=== PATIENT | female | born 1930 | race Asian ===

== ENCOUNTER 2016-07-19 13:44 | Inpatient (IN) | payer MEDICAID ==
[~2016-07-19] VITALS: Ht 152.4 cm; Wt 34.0 kg
[2016-07-19] VITALS (14 sets, daily range): BP systolic 102–132; BP diastolic 50–82; PULSE 68–124; RESP 24–25; TEMP 97.5–98.3; O2SAT 75–100
[~2016-07-19 13:44] MED LIST: VECURONIUM BROMIDE 10 MG/VIAL (NORCURON) ONE
[2016-07-19] MEDS ORDERED: NORMAL SALINE 5 ML DISP.SYRIN IVF SCH (14:00)
[2016-07-19] MEDS ORDERED: NACL 0.9% 1,000 ML IV ONE ×2 (14:14→16:00)
[2016-07-19] MEDS ORDERED: cefTRIAXone 1 GM IVPB PREMIX 50 ML IV ONE (14:15)
[2016-07-19] MEDS ORDERED: VECURONIUM BROMIDE 10 MG/VIAL (NORCURON) IVP ONE (14:15)
[2016-07-19 14:36] LABS: HEMATOCRIT 47.2 % (36-48); HEMOGLOBIN 15.2 g/dL (12.0-16.0); MEAN CORPUSCULAR HEMOGLOBIN 29 pg (27-31); MEAN CORPUSCULAR HGB CONC 32 % (32-36); MEAN CORPUSCULAR VOLUME 91 fL (79.0-98.0); PLATELET COUNT (AUTO) 192 K/uL (130-430); RED BLOOD CELL COUNT(AUTO) 5.21 MIL/uL (4.2-6.2); RED CELL DISTRIBUTION WIDTH 12.7 % (9.0-15.0); WHITE BLOOD COUNT (AUTO) 8.6 K/uL (4.8-10.8)
[2016-07-19 14:48] LABS: INR 1.1 (0.8-1.2); PROTHROMBIN TIME 11.9 SECS (9.5-12.5)
[2016-07-19 14:54] LABS: BAND % (MANUAL) 24 % (0-6)
[2016-07-19 14:55] LABS: BASOPHILS % (MANUAL) 0 % (0-2); EOSINOPHILS % (MANUAL) 0 % (0-7); LYMPHOCYTES % (MANUAL) 2 % (20-46); MONOCYTES % (MANUAL) 12 % (0-11)
[2016-07-19 14:58] LABS: ALANINE AMINOTRANSFERASE 211 U/L (12-78); ALBUMIN 3.6 g/dL (3.4-4.8); ANION GAP 13 (5-15); ASPARTATE AMINOTRANSFERASE 226 U/L (10-37); CALCIUM 9.4 mg/dL (8.4-11.0); CHLORIDE 93 mmol/L (98-107); CREATININE 1.04 mg/dL (0.55-1.30); GLUCOSE 154 mg/dL (70-99); POTASSIUM 3.8 mmol/L (3.5-5.1); SODIUM SERUM 131 mmol/L (136-145); TOTAL BILIRUBIN 1.1 mg/dL (0.0-1.0); TOTAL PROTEIN, SERUM 7.6 g/dL (6.4-8.3); UREA NITROGEN, BLOOD 74 mg/dL (8-21)
[2016-07-19 15:01] LABS: ABG TOTAL HEMOGLOBIN 16.8 G/dL (12.0-18.0); BLOOD GAS BASE EXCESS -5.7 mmol/L (-3.0-3.0); BLOOD GAS COHb% 1.9 % (0.5-1.5); BLOOD GAS PH 7.124 (7.350-7.450); BLOOD O2Hb% 69.2 % (94.0-97.0)
[2016-07-19 15:02] LABS: BLOOD GAS HHB 28.5 % (0.0-6.0)
[2016-07-19 15:15] LABS: BILIRUBIN,URINE NEGATIVE (NEGATIVE); BLOOD, URINE 2+ (NEGATIVE); COLOR,URINE YELLOW (YELLOW); GLUCOSE,URINE NEGATIVE (NEGATIVE); KETONES,URINE NEGATIVE (NEGATIVE); LEUKOCYTE ESTERASE ,URINE NEGATIVE (NEGATIVE); NITRITE, URINE NEGATIVE (NEGATIVE); PH,URINE 5.5 (5.0-8.0); PROTEIN URINE TRACE (NEGATIVE)
[2016-07-19 15:25] LABS: CLARITY/URINE SLIGHTLY HAZY (CLEAR)
[2016-07-19 15:26] LABS: BACTERIA,URINE FEW /HPF (None Seen); RBC,URINE 20-50 /HPF (0-3); WBC,URINE 0-3 /HPF (0-3)
[2016-07-19 15:27] LABS: FINE GRANULAR CASTS,URINE 0-10 /LPF (None Seen); HYALINE CASTS, URINE 0-10 /LPF (None Seen); MUCUS,URINE None Seen /LPF (None Seen)
[2016-07-19 15:56] LABS: BLOOD GAS PH 7.186 (7.350-7.450)
[2016-07-19 15:57] LABS: ABG TOTAL HEMOGLOBIN 15.9 G/dL (12.0-18.0); BLOOD GAS BASE EXCESS -3.2 mmol/L (-3.0-3.0); BLOOD GAS COHb% 1.5 % (0.5-1.5); BLOOD GAS HHB 0.3 % (0.0-6.0); BLOOD O2Hb% 97.5 % (94.0-97.0)
[2016-07-19] MEDS ORDERED: DILTIAZEM HCL 25 MG/5 ML VIAL IVP ONE (16:00)
[2016-07-19] MEDS ORDERED: LORazepam 2 MG/ML VIAL (FOR ER USE) IVP ONE (16:15)
[2016-07-19] MEDS ORDERED: LORazepam 2 MG/ML VIAL (FOR ER USE) ONE (16:17)
[2016-07-19 16:37] LABS: ABG TOTAL HEMOGLOBIN 15.6 G/dL (12.0-18.0); BLOOD GAS COHb% 1.2 % (0.5-1.5); BLOOD GAS HHB 2.7 % (0.0-6.0); BLOOD GAS PH 7.166 (7.350-7.450); BLOOD O2Hb% 95.6 % (94.0-97.0)
[2016-07-19] MEDS ORDERED: KCL 20 mEq in D5/0.45NS 1000mL 1,000 ML IV SCH (17:00)
[2016-07-19] MEDS ORDERED: LORazepam 2 MG/ML VIAL IVP PRN (17:15)
[2016-07-19] MEDS ORDERED: LevALBUTEROL HCL 1.25 MG/0.5 ML *CONC.* VIAL.NEB (XOPENEX CONC.) INH PRN (17:15)
[2016-07-19] MEDS ORDERED: PANTOPRAZOLE SODIUM 40 MG/VIAL (PROTONIX) IVP ONE (17:30)
[2016-07-19] MEDS ORDERED: DIGOXIN 0.5 MG/2 ML AMP IVP ONE ×2 (17:45→18:00)
[2016-07-19] MEDS: methylPREDNISolone SOD SUCC/PF 62.5 MG/ML VIAL IVP SCH (18:22)
[2016-07-19] MEDS: PIPERACILLIN/TAZO 3.375/DEX-IS 50 ML IV SCH (18:27)
[2016-07-19] MEDS: KCL 20 mEq in D5/0.45NS 1000mL 1,000 ML IV SCH (18:38)
[2016-07-19] MEDS: LevALBUTEROL HCL 1.25 MG/0.5 ML *CONC.* VIAL.NEB (XOPENEX CONC.) INH SCH (19:31)
[2016-07-19] MEDS: LACTOBACILLUS RHAMNOSUS GG 1 CAP CAPSULE PO SCH (21:54)
[2016-07-20] VITALS (35 sets, daily range): BP systolic 102–154; BP diastolic 49–95; PULSE 60–89; RESP 21–25; TEMP 97–100.4; O2SAT 100
[2016-07-20] MEDS ORDERED: DIGOXIN 0.5 MG/2 ML AMP IVP ONE
[2016-07-20] MEDS: methylPREDNISolone SOD SUCC/PF 62.5 MG/ML VIAL IVP SCH ×4 (00:44→17:18)
[2016-07-20] MEDS: PIPERACILLIN/TAZO 3.375/DEX-IS 50 ML IV SCH ×4 (00:45→17:18)
[2016-07-20] MEDS: LevALBUTEROL HCL 1.25 MG/0.5 ML *CONC.* VIAL.NEB (XOPENEX CONC.) INH SCH ×4 (01:03→20:07)
[2016-07-20] MEDS: KCL 20 mEq in D5/0.45NS 1000mL 1,000 ML IV SCH ×2 (02:43→09:06)
[2016-07-20 06:39] LABS: BASOPHILS % (AUTO) 0.2 % (0.0-2.0); EOSINOPHILS % (AUTO) 0.1 % (0.0-4.0); HEMATOCRIT 41.4 % (36-48); HEMOGLOBIN 13.8 g/dL (12.0-16.0); LYMPHOCYTES # (AUTO) 0.1 K/uL (1.0-5.5); LYMPHOCYTES % (AUTO) 1.5 % (20.5-51.5); MEAN CORPUSCULAR HEMOGLOBIN 30 pg (27-31); MEAN CORPUSCULAR HGB CONC 33 % (32-36); MEAN CORPUSCULAR VOLUME 92 fL (79.0-98.0); MONOCYTES # (AUTO) 0.5 K/uL (0.0-1.0); NEUTROPHILS % (AUTO) 93.2 % (40.0-70.0); PLATELET COUNT (AUTO) 169 K/uL (130-430); RED BLOOD CELL COUNT(AUTO) 4.53 MIL/uL (4.2-6.2); RED CELL DISTRIBUTION WIDTH 12.5 % (9.0-15.0); WHITE BLOOD COUNT (AUTO) 9.6 K/uL (4.8-10.8)
[2016-07-20 07:01] LABS: ANION GAP 7 (5-15); CALCIUM 8.3 mg/dL (8.4-11.0); CHLORIDE 100 mmol/L (98-107); CREATININE 0.76 mg/dL (0.55-1.30); GLUCOSE 239 mg/dL (70-99); POTASSIUM 4.2 mmol/L (3.5-5.1); SODIUM SERUM 134 mmol/L (136-145); UREA NITROGEN, BLOOD 41 mg/dL (8-21)
[2016-07-20] MEDS: LACTOBACILLUS RHAMNOSUS GG 1 CAP CAPSULE PO SCH ×2 (09:06→21:32)
[2016-07-20] MEDS: PANTOPRAZOLE SODIUM 40 MG/VIAL (PROTONIX) IVP SCH (09:06)
[2016-07-20 09:44] LABS: ABG TOTAL HEMOGLOBIN 14.7 G/dL (12.0-18.0); BLOOD GAS COHb% 0.8 % (0.5-1.5); BLOOD GAS HHB 5.4 % (0.0-6.0); BLOOD GAS PH 7.341 (7.350-7.450); BLOOD O2Hb% 93.3 % (94.0-97.0)
[2016-07-20] MEDS: LORazepam 2 MG/ML VIAL IVP PRN (17:19)
[2016-07-21] VITALS (35 sets, daily range): BP systolic 112–156; BP diastolic 45–89; PULSE 60–112; RESP 12–31; TEMP 97.9–99.1; O2SAT 95–100; Ht 152.4 cm; Wt 34.0 kg
[2016-07-21] MEDS: PIPERACILLIN/TAZO 3.375/DEX-IS 50 ML IV SCH ×4 (00:23→18:52)
[2016-07-21] MEDS: methylPREDNISolone SOD SUCC/PF 62.5 MG/ML VIAL IVP SCH ×4 (00:24→18:52)
[2016-07-21] MEDS: LevALBUTEROL HCL 1.25 MG/0.5 ML *CONC.* VIAL.NEB (XOPENEX CONC.) INH SCH ×4 (00:47→19:48)
[2016-07-21] MEDS: LORazepam 2 MG/ML VIAL IVP PRN ×3 (02:11→19:24)
[2016-07-21] MEDS: KCL 20 mEq in D5/0.45NS 1000mL 1,000 ML IV SCH ×4 (02:12→23:00)
[2016-07-21 06:58] LABS: BASOPHILS % (AUTO) 0.1 % (0.0-2.0); EOSINOPHILS % (AUTO) 0.1 % (0.0-4.0); HEMATOCRIT 40.2 % (36-48); HEMOGLOBIN 13.5 g/dL (12.0-16.0); LYMPHOCYTES # (AUTO) 0.2 K/uL (1.0-5.5); LYMPHOCYTES % (AUTO) 1.7 % (20.5-51.5); MEAN CORPUSCULAR HEMOGLOBIN 31 pg (27-31); MEAN CORPUSCULAR HGB CONC 34 % (32-36); MEAN CORPUSCULAR VOLUME 91 fL (79.0-98.0); MONOCYTES # (AUTO) 0.7 K/uL (0.0-1.0); MONOCYTES % (AUTO) 5.7 % (1.7-9.3); NEUTROPHILS # (AUTO) 11.8 K/uL (1.8-7.7); NEUTROPHILS % (AUTO) 92.4 % (40.0-70.0); PLATELET COUNT (AUTO) 172 K/uL (130-430); RED BLOOD CELL COUNT(AUTO) 4.41 MIL/uL (4.2-6.2); RED CELL DISTRIBUTION WIDTH 12.8 % (9.0-15.0); WHITE BLOOD COUNT (AUTO) 12.7 K/uL (4.8-10.8)
[2016-07-21 06:59] LABS: ANION GAP 3 (5-15); CALCIUM 8.7 mg/dL (8.4-11.0); CHLORIDE 104 mmol/L (98-107); CREATININE 0.57 mg/dL (0.55-1.30); GLUCOSE 241 mg/dL (70-99); POTASSIUM 4.7 mmol/L (3.5-5.1); SODIUM SERUM 136 mmol/L (136-145); UREA NITROGEN, BLOOD 18 mg/dL (8-21)
[2016-07-21 09:25] LABS: BLOOD GAS PH 7.305 (7.350-7.450)
[2016-07-21 09:26] LABS: ABG TOTAL HEMOGLOBIN 14.6 G/dL (12.0-18.0); BLOOD GAS BASE EXCESS -0.3 mmol/L (-3.0-3.0); BLOOD GAS COHb% 0.6 % (0.5-1.5); BLOOD GAS HHB 1.6 % (0.0-6.0); BLOOD O2Hb% 97.2 % (94.0-97.0)
[2016-07-21] MEDS: LACTOBACILLUS RHAMNOSUS GG 1 CAP CAPSULE PO SCH ×2 (09:42→21:52)
[2016-07-21] MEDS: PANTOPRAZOLE SODIUM 40 MG/VIAL (PROTONIX) IVP SCH (09:42)
[2016-07-21] MEDS: DILTIAZEM HCL 30 MG TABLET PO SCH ×2 (12:57→21:53)
[2016-07-21] MEDS ORDERED: BUDESONIDE 0.5 MG/2 ML AMPUL.NEB INH ONE (19:30)
[2016-07-22] VITALS (36 sets, daily range): BP systolic 128–185; BP diastolic 62–142; PULSE 60–92; RESP 16–34; TEMP 98.7–101; O2SAT 96–100
[2016-07-22] MEDS: methylPREDNISolone SOD SUCC/PF 62.5 MG/ML VIAL IVP SCH ×5 (00:13→23:24)
[2016-07-22] MEDS: PIPERACILLIN/TAZO 3.375/DEX-IS 50 ML IV SCH ×5 (00:15→23:23)
[2016-07-22] MEDS: LORazepam 2 MG/ML VIAL IVP PRN ×4 (00:30→22:03)
[2016-07-22] MEDS: LevALBUTEROL HCL 1.25 MG/0.5 ML *CONC.* VIAL.NEB (XOPENEX CONC.) INH SCH ×4 (00:52→23:36)
[2016-07-22] MEDS: DILTIAZEM HCL 30 MG TABLET PO SCH ×3 (06:13→21:06)
[2016-07-22 06:36] LABS: BASOPHILS % (AUTO) 0.3 % (0.0-2.0); HEMATOCRIT 39.9 % (36-48); HEMOGLOBIN 13.2 g/dL (12.0-16.0); LYMPHOCYTES # (AUTO) 0.1 K/uL (1.0-5.5); LYMPHOCYTES % (AUTO) 1.1 % (20.5-51.5); MEAN CORPUSCULAR HEMOGLOBIN 31 pg (27-31); MEAN CORPUSCULAR HGB CONC 33 % (32-36); MEAN CORPUSCULAR VOLUME 92 fL (79.0-98.0); MONOCYTES # (AUTO) 0.9 K/uL (0.0-1.0); MONOCYTES % (AUTO) 7.7 % (1.7-9.3); NEUTROPHILS # (AUTO) 10.1 K/uL (1.8-7.7); NEUTROPHILS % (AUTO) 90.9 % (40.0-70.0); PLATELET COUNT (AUTO) 179 K/uL (130-430); RED BLOOD CELL COUNT(AUTO) 4.34 MIL/uL (4.2-6.2); RED CELL DISTRIBUTION WIDTH 12.8 % (9.0-15.0); WHITE BLOOD COUNT (AUTO) 11.1 K/uL (4.8-10.8)
[2016-07-22 07:13] LABS: ALANINE AMINOTRANSFERASE 108 U/L (12-78); ALBUMIN 2.2 g/dL (3.4-4.8); ANION GAP 3 (5-15); ASPARTATE AMINOTRANSFERASE 30 U/L (10-37); CALCIUM 8.8 mg/dL (8.4-11.0); CHLORIDE 103 mmol/L (98-107); CREATININE 0.51 mg/dL (0.55-1.30); GLUCOSE 245 mg/dL (70-99); POTASSIUM 4.9 mmol/L (3.5-5.1); SODIUM SERUM 137 mmol/L (136-145); TOTAL BILIRUBIN 0.4 mg/dL (0.0-1.0); TOTAL PROTEIN, SERUM 5.7 g/dL (6.4-8.3); UREA NITROGEN, BLOOD 15 mg/dL (8-21)
[2016-07-22] MEDS: BUDESONIDE 0.5 MG/2 ML AMPUL.NEB INH SCH ×2 (07:30→23:36)
[2016-07-22] MEDS: LACTOBACILLUS RHAMNOSUS GG 1 CAP CAPSULE PO SCH ×2 (08:14→21:05)
[2016-07-22] MEDS: PANTOPRAZOLE SODIUM 40 MG/VIAL (PROTONIX) IVP SCH (08:14)
[2016-07-22] MEDS: KCL 20 mEq in D5/0.45NS 1000mL 1,000 ML IV SCH ×2 (08:16→17:10)
[2016-07-22 09:35] LABS: ABG TOTAL HEMOGLOBIN 14.5 G/dL (12.0-18.0); BLOOD GAS BASE EXCESS 1.7 mmol/L (-3.0-3.0); BLOOD GAS COHb% 0.6 % (0.5-1.5); BLOOD GAS HHB 2.1 % (0.0-6.0); BLOOD GAS PH 7.311 (7.350-7.450); BLOOD O2Hb% 96.8 % (94.0-97.0)
[2016-07-22] MEDS: ACETAMINOPHEN 325 MG TABLET NG PRN (13:04)
[2016-07-23] VITALS (35 sets, daily range): BP systolic 114–184; BP diastolic 65–114; PULSE 70–115; RESP 16–39; TEMP 97.1–100; O2SAT 97–100
[2016-07-23] MEDS: LORazepam 2 MG/ML VIAL IVP PRN ×6 (02:01→21:59)
[2016-07-23] MEDS: ACETAMINOPHEN 325 MG TABLET NG PRN (02:01)
[2016-07-23] MEDS: KCL 20 mEq in D5/0.45NS 1000mL 1,000 ML IV SCH ×3 (02:06→17:19)
[2016-07-23] MEDS: DILTIAZEM HCL 30 MG TABLET PO SCH ×3 (05:15→21:58)
[2016-07-23] MEDS: methylPREDNISolone SOD SUCC/PF 62.5 MG/ML VIAL IVP SCH ×4 (05:15→23:40)
[2016-07-23] MEDS: PIPERACILLIN/TAZO 3.375/DEX-IS 50 ML IV SCH ×4 (05:16→23:40)
[2016-07-23] MEDS: LevALBUTEROL HCL 1.25 MG/0.5 ML *CONC.* VIAL.NEB (XOPENEX CONC.) INH SCH ×2 (07:29→13:17)
[2016-07-23] MEDS: BUDESONIDE 0.5 MG/2 ML AMPUL.NEB INH SCH (07:29)
[2016-07-23] MEDS: PANTOPRAZOLE SODIUM 40 MG/VIAL (PROTONIX) IVP SCH (08:09)
[2016-07-23] MEDS: LACTOBACILLUS RHAMNOSUS GG 1 CAP CAPSULE PO SCH ×2 (08:09→21:58)
[2016-07-23 10:01] LABS: BLOOD GAS PH 7.415 (7.350-7.450)
[2016-07-23 10:02] LABS: BLOOD GAS BASE EXCESS 6.2 mmol/L (-3.0-3.0); BLOOD GAS COHb% 1.1 % (0.5-1.5); BLOOD GAS HHB 4.7 % (0.0-6.0); BLOOD O2Hb% 93.9 % (94.0-97.0)
[2016-07-24] VITALS (20 sets, daily range): BP systolic 105–177; BP diastolic 66–97; PULSE 72–141; RESP 14–37; TEMP 98.5–98.9; O2SAT 95–99
[2016-07-24] MEDS: LevALBUTEROL HCL 1.25 MG/0.5 ML *CONC.* VIAL.NEB (XOPENEX CONC.) INH SCH ×3 (00:13→07:28)
[2016-07-24] MEDS: BUDESONIDE 0.5 MG/2 ML AMPUL.NEB INH SCH ×2 (00:13→07:28)
[2016-07-24] MEDS: KCL 20 mEq in D5/0.45NS 1000mL 1,000 ML IV SCH (02:03)
[2016-07-24] MEDS: LORazepam 2 MG/ML VIAL IVP PRN ×4 (02:39→11:51)
[2016-07-24] MEDS: ENALAPRILAT DIHYDRATE 1.25 MG/ML VIAL IVP PRN ×2 (04:17→12:15)
[2016-07-24] MEDS: PIPERACILLIN/TAZO 3.375/DEX-IS 50 ML IV SCH ×2 (05:37→10:11)
[2016-07-24] MEDS: methylPREDNISolone SOD SUCC/PF 62.5 MG/ML VIAL IVP SCH ×2 (05:37→11:05)
[2016-07-24] MEDS: DILTIAZEM HCL 30 MG TABLET PO SCH (05:38)
[2016-07-24 07:06] LABS: ANION GAP 5 (5-15); CALCIUM 8.9 mg/dL (8.4-11.0); CHLORIDE 103 mmol/L (98-107); CREATININE 0.56 mg/dL (0.55-1.30); GLUCOSE 207 mg/dL (70-99); POTASSIUM 3.9 mmol/L (3.5-5.1); SODIUM SERUM 144 mmol/L (136-145); UREA NITROGEN, BLOOD 14 mg/dL (8-21)
[2016-07-24 07:11] LABS: BASOPHILS # (AUTO) 0.1 K/uL (0.0-0.2); BASOPHILS % (AUTO) 0.5 % (0.0-2.0); HEMATOCRIT 44.3 % (36-48); HEMOGLOBIN 14.6 g/dL (12.0-16.0); LYMPHOCYTES # (AUTO) 0.1 K/uL (1.0-5.5); MEAN CORPUSCULAR HEMOGLOBIN 30 pg (27-31); MEAN CORPUSCULAR HGB CONC 33 % (32-36); MEAN CORPUSCULAR VOLUME 91 fL (79.0-98.0); MONOCYTES # (AUTO) 0.4 K/uL (0.0-1.0); MONOCYTES % (AUTO) 2.9 % (1.7-9.3); NEUTROPHILS % (AUTO) 95.6 % (40.0-70.0); PLATELET COUNT (AUTO) 181 K/uL (130-430); RED BLOOD CELL COUNT(AUTO) 4.84 MIL/uL (4.2-6.2); RED CELL DISTRIBUTION WIDTH 12.3 % (9.0-15.0); WHITE BLOOD COUNT (AUTO) 12.6 K/uL (4.8-10.8)
[2016-07-24] MEDS ORDERED: DIGOXIN 0.5 MG/2 ML AMP IVP ONE (08:45)
[2016-07-24] MEDS: LACTOBACILLUS RHAMNOSUS GG 1 CAP CAPSULE PO SCH (09:04)
[2016-07-24] MEDS: PANTOPRAZOLE SODIUM 40 MG/VIAL (PROTONIX) IVP SCH (09:04)
[2016-07-24 09:42] LABS: ABG TOTAL HEMOGLOBIN 15.9 G/dL (12.0-18.0); BLOOD GAS BASE EXCESS 9.8 mmol/L (-3.0-3.0); BLOOD GAS PH 7.475 (7.350-7.450); BLOOD O2Hb% 92.9 % (94.0-97.0)
[2016-07-24 09:43] LABS: BLOOD GAS COHb% 0.5 % (0.5-1.5); BLOOD GAS HHB 6.3 % (0.0-6.0)
== END 2016-07-24 12:30 | disposition short-term general hospital (02) | DRG 130 ==
LOC: SED 13:44 → SIC 16:39
PROVIDERS: ADMIT Family Medicine; ATTEND Family Medicine
PROC: 5A1955Z Respiratory Ventilation, Greater than 96 Consecutive Hours (ICD-10-PCS; principal; 2016-07-19)
PROC: 0BH17EZ Insertion of Endotracheal Airway into Trachea, Via Natural or Artificial Opening (ICD-10-PCS; 2016-07-19)
DX: J96.01 Acute respiratory failure with hypoxia (principal); J18.9 Pneumonia, unspecified organism; E87.2 Acidosis; I11.0 Hypertensive heart disease with heart failure; I50.9 Heart failure, unspecified; F03.90 Unspecified dementia, unspecified severity, without behavioral disturbance, psychotic disturbance, mood disturbance, and anxiety; J44.0 Chronic obstructive pulmonary disease with (acute) lower respiratory infection; I48.0 Paroxysmal atrial fibrillation; J44.1 Chronic obstructive pulmonary disease with (acute) exacerbation; E86.0 Dehydration; F17.210 Nicotine dependence, cigarettes, uncomplicated
CPT/HCPCS: 36415; 36600; 70450-TC; 71010; 80048; 80053; 81000-TC; 82803-TC; 82962; 83605; 83880; 84484; 85007; 85025; 85027; 85610-TC; 85730-TC; 87040-TC; 87081; 93005; 93306; 94002; 94003; 94640; 94760; 96361; 96365; 96375; 99291; C9113; J0696; J1160; J2060; J2543; J2930; J3490; J7030; J7050